=== PATIENT | female | born 1980 | race Caucasian/White ===

== ENCOUNTER 2018-04-20 11:07 | Emergency (ER) | payer SELFPAY ==
[2018-04-20] MEDS ORDERED: IPRATROPIUM BROM 0.5MG/2.5ML ONE (12:34)
[2018-04-20] MEDS ORDERED: ALBUTEROL 2.5 MG/3 ML NEB SOL ONE (12:34)
[2018-04-20] MEDS ORDERED: METHYLPREDNISOLONE 125 MG INJ ONE (12:34)
--- NOTE | 2018-04-20 12:59 | ER ---
Nurse's Notes [facility] Name: Anny Booth Age: 37 yrs Sex: Female : 1980 Arrival Date: 04/20/2018 Time: 11:11 Bed 9 Private MD: None, None Diagnosis: Asthma Presentation: 04/20 11:14 Presenting complaint: Patient states: SOB x 1 week, c/o wheezing has been using her sv inhaler with no improvement. Transition of care: patient was not received from another setting of care. Onset of symptoms was April 13, 2018. Care prior to arrival: None. 11:14 Method Of Arrival: Ambulatory sv 11:14 Acuity: TIM 3 sv 11:23 Risk Assessment: Do you want to hurt yourself or someone else? Patient reports no tw2 desire to harm self or others. Initial Sepsis Screen: Does the patient meet any 2 criteria? No. Patient's initial sepsis screen is negative. Does the patient have a suspected source of infection? No. Patient's initial sepsis screen is negative. 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 - Social history:: Smoking status: Patient/guardian denies using tobacco. - Ebola Screening: : No symptoms or risks identified at this time. Screenin:22 Abuse screen: Denies threats or abuse. Nutritional screening: No deficits noted. tw2 Tuberculosis screening: No symptoms or risk factors identified. Fall Risk None identified. Assessment: 11:28 General: Appears in no apparent distress. comfortable, Behavior is calm, cooperative, ss Denies fever, fatigue, chills. Pain: Denies pain. Neuro: Level of Consciousness is awake, alert, obeys commands. Cardiovascular: Heart tones S1 S2 present Capillary refill < 3 seconds is brisk in bilateral fingers Patient's skin is warm and dry. Respiratory: Airway is patent Respiratory effort is even, unlabored, Respiratory pattern is regular, symmetrical. Respiratory: Reports shortness of breath x 1 week Breath sounds with wheezes bilaterally. GI: Patient currently denies diarrhea, nausea, vomiting. EENT: Oral mucosa is moist. Throat is clear. Derm: Skin is intact, is healthy with good turgor, Skin is dry, Skin is pink, warm \T\ dry. normal. Musculoskeletal: Circulation, motion, and sensation intact. Capillary refill < 3 seconds, is brisk, in bilateral fingers. Range of motion: intact in all extremities, Swelling absent. Vital Signs: 11:16 BP 109 / 71; Pulse 91; Resp 20; Temp 97.6; Pulse Ox 98% ; Weight 54.43 kg; Height 5 ft. sv 0 in. (152.40 cm); Pain 0/10; 13:15 BP 115 / 78; Pulse 96; Resp 18; Pulse Ox 100% on R/A; kr2 11:16 Body Mass Index 23.44 (54.43 kg, 152.40 cm) sv ED Course: 11:11 Patient arrived in ED. mr 11:12 None, None is Private Physician. mr 11:15 Triage completed. sv 11:16 Arm band placed on right wrist. sv 11:23 Bed in low position. Call light in reach. Pulse ox on. NIBP on. tw2 11:26 Fredi Jacinto MD is Attending Physician. kdr 12:20 Gamaliel Ramirez RN is Primary Nurse. la1 13:23 No provider procedures requiring assistance completed. Patient did not have IV access kr2 during this emergency room visit. Administered Medications: 12:49 Drug: SOLU-Medrol 125 mg Route: IM; Site: right gluteus; ss 13:22 Follow up: Response: No adverse reaction kr2 12:49 Drug: Albuterol - atroVENT (3:1) (2.5 mg - 0.5 mg) 3 ml Route: Nebulizer; ss 13:22 Follow up: Response: No adverse reaction; Marked relief of symptoms kr2 Outcome: 12:59 Discharge ordered by . kdr 13:23 Discharged to home ambulatory, with family. kr2 13:23 Condition: good 13:23 Discharge instructions given to patient, Instructed on discharge instructions, follow up and referral plans. medication usage, Demonstrated understanding of instructions, follow-up care, medications, Prescriptions given X 3. 13:25 Patient left the ED. kr2 Signatures: Saima Penn RN RN Fredi Jacinto MD MD kdr Rivera, Maria mr Smirch, Shelby RN RN ss Gamaliel Ramirez, RN RN la1 Nanda Vargas, RN RN tw2 Meghann Wylie, RN RN kr2
--- NOTE | 2018-04-20 12:59 | EDPHYS ---
Physician Documentation [facility] Name: Anny Booth Age: 37 yrs Sex: Female : 1980 Arrival Date: 04/20/2018 Time: 11:11 Bed 9 Private MD: None, None ED Physician Fredi Jacinto HPI: 04/20 16:40 This 37 yrs old Female presents to ER via Ambulatory with complaints of kdr Asthma Exacerbation. 16:40 The patient presents to the emergency department with wheezing, Current therapy: kdr albuterol inhaler, that began at rest, the patient was reported to have audible wheezing, trouble breathing, Pre-hospital care: none. Onset: The symptoms/episode began/occurred gradually, 1 week(s) ago. Modifying factors: The symptoms are alleviated by nothing, the symptoms are aggravated by exertion, smoke. Associated signs and symptoms: Pertinent positives: Cough, Pertinent negatives: chest pain, choking, fever, headache, nausea, palpitations, rash, vomiting. Severity of symptoms: At their worst the symptoms were mild moderate just prior to arrival, in the emergency department the symptoms are unchanged. The patient has experienced similar episodes in the past, multiple times, chronically. The patient has not recently seen a physician. 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 - Social history:: Smoking status: Patient/guardian denies using tobacco. - Ebola Screening: : No symptoms or risks identified at this time. ROS: 16:40 Constitutional: Negative for fever, chills, and weight loss, Eyes: Negative for injury, kdr pain, redness, and discharge, ENT: Negative for injury, pain, and discharge, Neck: Negative for injury, pain, and swelling, Cardiovascular: Negative for chest pain, palpitations, and edema, Abdomen/GI: Negative for abdominal pain, nausea, vomiting, diarrhea, and constipation, Back: Negative for injury and pain, : Negative for injury, bleeding, discharge, and swelling, MS/Extremity: Negative for injury and deformity, Skin: Negative for injury, rash, and discoloration, Neuro: Negative for headache, weakness, numbness, tingling, and seizure activity. Psych: Negative for depression, anxiety, suicide ideation, homicidal ideation, and hallucinations, Allergy/Immunology: Negative for hives, rash, and allergies, Endocrine: Negative for neck swelling, polydipsia, polyuria, polyphagia, and marked weight changes, Hematologic/Lymphatic: Negative for swollen nodes, abnormal bleeding, and unusual bruising. 16:40 Respiratory: Positive for cough, shortness of breath, wheezing, expiratory, Negative for Exam: 16:40 Constitutional: This is a well developed, well nourished patient who is awake, alert, kdr and in no acute distress. Head/Face: Normocephalic, atraumatic. Eyes: Pupils equal round and reactive to light, extra-ocular motions intact. Lids and lashes normal. Conjunctiva and sclera are non-icteric and not injected. Cornea within normal limits. Periorbital areas with no swelling, redness, or edema. Neck: Trachea midline, no thyromegaly or masses palpated, and no cervical lymphadenopathy. Supple, full range of motion without nuchal rigidity, or vertebral point tenderness. No Meningismus. Chest/axilla: Normal chest wall appearance and motion. Nontender with no deformity. No lesions are appreciated. Cardiovascular: Regular rate and rhythm with a normal S1 and S2. No gallops, murmurs, or rubs. Normal PMI, no JVD. No pulse deficits. Abdomen/GI: Soft, non-tender, with normal bowel sounds. No distension or tympany. No guarding or rebound. No evidence of tenderness throughout. Back: No spinal tenderness. No costovertebral tenderness. Full range of motion. Skin: Warm, dry with normal turgor. Normal color with no rashes, no lesions, and no evidence of cellulitis. MS/ Extremity: Pulses equal, no cyanosis. Neurovascular intact. Full, normal range of motion. Neuro: Awake and alert, GCS 15, oriented to person, place, time, and situation. Cranial nerves II-XII grossly intact. Motor strength 5/5 in all extremities. Sensory grossly intact. Cerebellar exam normal. Normal gait. Psych: Awake, alert, with orientation to person, place and time. Behavior, mood, and affect are within normal limits. 16:40 Respiratory: mild respiratory distress is noted, Respirations: normal, Breath sounds: wheezing: inspiratory expiratory that is mild, is heard diffusely. Vital Signs: 11:16 BP 109 / 71; Pulse 91; Resp 20; Temp 97.6; Pulse Ox 98% ; Weight 54.43 kg; Height 5 ft. sv 0 in. (152.40 cm); Pain 0/10; 13:15 BP 115 / 78; Pulse 96; Resp 18; Pulse Ox 100% on R/A; kr2 11:16 Body Mass Index 23.44 (54.43 kg, 152.40 cm) sv MDM: 12:59 Patient medically screened. kdr 16:40 Data reviewed: vital signs, nurses notes. Counseling: I had a detailed discussion with kdr the patient and/or guardian regarding: the historical points, exam findings, and any diagnostic results supporting the discharge/admit diagnosis, the need for outpatient follow up. Administered Medications: 12:49 Drug: SOLU-Medrol 125 mg Route: IM; Site: right gluteus; 13:22 Follow up: Response: No adverse reaction kr2 12:49 Drug: Albuterol - atroVENT (3:1) (2.5 mg - 0.5 mg) 3 ml Route: Nebulizer; ss 13:22 Follow up: Response: No adverse reaction; Marked relief of symptoms kr2 Disposition: 04/20/18 12:59 Discharged to Home. Impression: Asthma. - Condition is Stable. - Discharge Instructions: Asthma, Adult, [id number]. - Prescriptions for Albuterol Sulfate 2.5 mg /3 mL (0.083 %) Inhalation Solution for Nebulization - inhale 1 unit by NEBULIZATION route every 8 hours As needed; 1 box. Medrol (Sunny) 4 mg Oral Tablets, Dose Pack - take 1 tablet by ORAL route as directed - follow package instructions; 1 packet. - Medication Reconciliation Form, Thank You Letter form. - Follow up: Private Physician; When: 2 - 3 days; Reason: If symptoms return, Further diagnostic work-up, Recheck today's complaints, Continuance of care, Re-evaluation by your physician. - Problem is an acute exacerbation. - Symptoms have improved. Signatures: Saima Penn RN RN Fredi Jacinto MD MD kdr Smirch, Shelby, RN RN Inessa, Meghann, RN RN kr2 Corrections: (The following items were deleted from the chart) 13:25 12:59 04/20/2018 12:59 Discharged to Home. Impression: Asthma. Condition is Stable. kr2 Forms are Medication Reconciliation Form, Thank You Letter, Antibiotic Education, Prescription Opioid Use. Follow up: Private Physician; When: 2 - 3 days; Reason: If symptoms return, Further diagnostic work-up, Recheck today's complaints, Continuance of care, Re-evaluation by your physician. Problem is an acute exacerbation. Symptoms have improved. kdr
== END 2018-04-20 13:25 | disposition home or self-care (01) ==
LOC: ER 11:07
DX: J45.901 Unspecified asthma with (acute) exacerbation (principal)
CPT/HCPCS: 94640; 96372; 99284; J2930